=== PATIENT | male | born 1970 | race African-American/Black ===

== ENCOUNTER 2017-03-15 20:30 | Emergency (ER) | payer SELFPAY ==
[2017-03-15 21:04] LABS: #Basophils 0.1 thou/uL (0.0-0.2); #Eosinphils 0.4 thou/uL (0.0-0.7); #Monocytes 0.4 thou/uL (0.11-0.59); #Neutrophils 5.7 thou/uL (1.40-6.50); %Eosinophils 3.7 % (0.0-10.0); %Lymphocytes 37.6 % (21.0-51.0); %Monocytes 4.2 % (0.0-10.0); Hematocrit 46.8 % (42.0-52.0); Mean Platelet Volume 7.5 fL (7.4-10.4); Red Blood Cell (RBC) Count 5.48 mill/uL (4.70-6.10); White Blood Cell (WBC) Count 10.6 thou/uL (4.8-10.8)
--- NOTE | 2017-03-15 21:18 | RAD ---
PORTABLE AP CHEST X-RAY 03/15/17 HISTORY: Left sided chest pain for 30 minutes. Cough for one week. COMPARISON: 06/06/13 The cardiac silhouette and pulmonary vasculature are within normal limits for the portable technique of the study. The lungs remain clear. There has been no interval change from the prior exam. IMPRESSION: No acute cardiopulmonary process. POS: [facility] [place]
[2017-03-15 21:19] LABS: ALT (SGPT) 19 U/L (8-55); AST (SGOT) 20 U/L (5-34); Alkaline Phosphatase 65 U/L (40-150); Anion Gap 14 mmol/L (10-20); BUN (Urea Nitrogen) 17 mg/dL (8.9-20.6); Bilirubin, Total 0.8 mg/dL (0.2-1.2); Calc. Creatinine Clearance 0 mL/min (70-130); Calcium 9.3 mg/dL (7.8-10.44); Carbon Dioxide 26 mmol/L (22-29); Chloride 103 mmol/L (98-107); Estimated GFR-MDRD 78; Globulin 3.9 g/dL (2.4-3.5); Protein, Total 7.9 g/dL (6.0-8.3)
[2017-03-15 21:24] LABS: Troponin I Less than 0.010 ng/mL (< 0.028)
[2017-03-15] MEDS ORDERED: cefTRIAXone\\ROCEPHIN 1 GM VIAL ONE (22:16)
[2017-03-15] MEDS ORDERED: Lidocaine 1% PF 5 ML VIAL ONE (22:21)
[2017-03-15] MEDS ORDERED: Dexamethasone 10 MG/ML VIAL IM SCH (22:30)
== END 2017-03-15 22:51 | disposition home or self-care (01) ==
LOC: ERS 20:30
DX: J20.9 Acute bronchitis, unspecified (principal)
CPT/HCPCS: 36415; 71020; 80053; 82553; 84484; 85025; 93005; 94640; 96372; J0696; J1100; J2001; J7620

== ENCOUNTER 2017-05-27 09:10 | Emergency (ER) | payer SELFPAY | END 2017-05-27 10:33 | disposition home or self-care (01) | LOC: ERS 09:10 | DX: J06.9 Acute upper respiratory infection, unspecified (principal); F17.220 Nicotine dependence, chewing tobacco, uncomplicated | CPT/HCPCS: 99283 ==

== ENCOUNTER 2017-06-13 02:32 | Observation (INO) | payer SELFPAY ==
[2017-06-13] MEDS ORDERED: Lorazepam 2 MG/ML VIAL ONE (02:45)
[2017-06-13 03:04] LABS: #Basophils 0.1 thou/uL (0.0-0.2); #Eosinphils 0.3 thou/uL (0.0-0.7); #Lymphocytes 4.9 thou/uL (1.20-3.40); #Monocytes 0.4 thou/uL (0.11-0.59); #Neutrophils 5.1 thou/uL (1.40-6.50); %Basophils 0.5 % (0.0-1.0); %Eosinophils 2.5 % (0.0-10.0); %Monocytes 3.9 % (0.0-10.0); %Neutrophils 47.1 % (42.0-75.0); Hemoglobin 15.3 g/dL (14.0-18.0); Mean Corpuscular HGB CONC 35.1 g/dL (32.0-36.0); Mean Corpuscular Volume 85.6 fl (80.0-94.0); Mean Platelet Volume 7.2 fL (7.4-10.4); Platelet Count 286 thou/uL (130-400); RBC Distribution Width 12.6 % (11.5-14.5); Red Blood Cell (RBC) Count 5.11 mill/uL (4.70-6.10); White Blood Cell (WBC) Count 10.7 thou/uL (4.8-10.8)
[2017-06-13 03:19] LABS: ALT (SGPT) 17 U/L (8-55); AST (SGOT) 17 U/L (5-34); Albumin 4.1 g/dL (3.5-5.0); Alkaline Phosphatase 59 U/L (40-150); Anion Gap 14 mmol/L (10-20); BUN (Urea Nitrogen) 15 mg/dL (8.9-20.6); Bilirubin, Total 0.6 mg/dL (0.2-1.2); CK (CPK) 372 U/L (30-200); Calc. Creatinine Clearance 0 mL/min (70-130); Calcium 9.4 mg/dL (7.8-10.44); Carbon Dioxide 25 mmol/L (22-29); Chloride 103 mmol/L (98-107); Estimated GFR-MDRD 81; Globulin 3.5 g/dL (2.4-3.5); Glucose 213 mg/dL (70-105); Potassium 3.7 mmol/L (3.5-5.1); Protein, Total 7.6 g/dL (6.0-8.3); Sodium 138 mmol/L (136-145)
[2017-06-13 03:22] LABS: CKMB 3.9 ng/mL (0-6.6); Troponin I Less than 0.010 ng/mL (< 0.028)
[2017-06-13 04:01] LABS: Amphetamine Not Detected (NotDetected); Barbiturates Screen Not Detected (NotDetected); Benzodiazepine Screen Not Detected (NotDetected); Cocaine Metabolite Screen Not Detected (NotDetected); Medtox Control Line Valid? VALID (VALID); Medtox Reader # READER 4; Methadone Not Detected (NotDetected); Methamphetamine Not Detected (NotDetected); Opiate Screen Not Detected (NotDetected); Oxycodone Screen Not Detected (NotDetected); Phencyclidine (PCP) Not Detected (NotDetected); THC/Cannabinoid Screen Not Detected (NotDetected); Tricyclic Screen Not Detected (NotDetected)
[2017-06-13 06:03] VITALS: BMI 34.9
[2017-06-13] MEDS ORDERED: Acetaminophen 325 MG TAB PO PRN ×2 (06:19→07:20)
[2017-06-13] MEDS ORDERED: Ondansetron HCl/PF 4 MG/2 ML Vial IVP PRN (06:19)
[2017-06-13] MEDS ORDERED: Ondansetron ODT 4 MG TAB SL PRN (06:19)
[2017-06-13 06:31] LABS: Troponin I Less than 0.010 ng/mL (< 0.028)
[2017-06-13] MEDS ORDERED: Ondansetron ODT 4 MG TAB PO PRN (07:20)
--- NOTE | 2017-06-13 07:39 | HP ---
PRIMARY CARE PROVIDER: [facility] call admission for [facility]. CHIEF COMPLAINT: Referred to [facility] Hospitalist Service by [facility]. HISTORY OF PRESENT ILLNESS: The patient awoke this morning with palpitations, tightness in his chest , lasted 10-15 minutes. He had shortness of breath with it. No sweats, no nausea, no radiation of t he chest tightness. security director were called. He reportedly had a pulse of 148 when they arrived. PAST MEDICAL HISTORY: Negative for chronic medical disease. MEDICATIONS: None. ALLERGIES: None. PAST SURGICAL HISTORY: He has had arthroscopic surgery of both knees. FAMILY HISTORY: One grandfather had coronary artery disease. Multiple members of the family have hy pertension. SOCIAL HISTORY: . Full code status. at bedside. No tobacco, no alcohol of note. REVIEW OF SYSTEMS: GENERAL: No headaches, dizziness or fainting. EYES: No double vision, blurred vision, flashing lights. ENT: No ear pain or drainage. No nasal bleeding. No trouble swallowing. No bleeding gums. CARDIAC: See present illness. No prior history. No orthopnea, no paroxysmal nocturnal dyspnea. RESPIRATORY: No cough, wheezing or asthma. GASTROINTESTINAL: No nausea, vomiting, diarrhea, constipation or blood in his stools. GENITOURINARY: No hematuria or dysuria. MUSCULOSKELETAL: No pain or swelling in his arms or legs. NEUROLOGIC: No strokes, seizures or focal weakness. PSYCHIATRIC: No history of anxiety or depression. SKIN: No bruising, bleeding or rash. HEME/LYMPH: No tender or swollen lymph nodes under his arms, neck or his groin. No history of bleed ing gums or bleeding under his skin. PHYSICAL EXAMINATION: GENERAL: He is an alert, oriented, cooperative, pleasant gentleman. VITAL SIGNS: Blood pressure 122/69, pulse 90, respirations 18, O2 sat 97 on room air, temperature 97 .8. HEENT: Reveal pupils equal, round, and reactive to light. Extraocular movements are intact. Sclera e white. Tympanic membranes clear. Nose clear. Oral mucous membranes are wet. Dental hygiene is g ood. NECK: Supple, without jugular venous distention, adenopathy or thyromegaly. CHEST: Clear to auscultation and percussion. HEART: Regular rate and rhythm. First and second heart sounds are clear. There are no murmurs, no gallops, no lifts. ABDOMEN: Soft, bowel sounds are normal. There is no hepatosplenomegaly, no mass, no rebound, no bru its. EXTREMITIES: Reveal no cyanosis, clubbing or edema. PULSES: Carotid, radial, femoral, and dorsalis pedis pulses were brisk intact and symmetric. HEME/LYMPH: No tender or swollen lymph nodes in axilla, inguinal or cervical area. No petechial hem orrhages on his extremities, etc. NEUROLOGICAL: Cranial nerves II-XII are intact. Deep tendon reflexes symmetric. Toes downgoing. EKG reviewed by me, normal. LABORATORY AND X-RAY FINDINGS: Chest x-ray reviewed by myself, normal. No cardiomegaly, CHF or infi ltrate. Comp metabolic profile, blood sugar 213, otherwise normal. CK 372. Cardiac enzymes normal x2. CBC normal. Toxicology; no illicit drugs, etc. ADMITTING DIAGNOSES: 1. Palpitations. 2. Hypertensive with EMS and early in the ER. 3. Chest tightness/chest pain. PLAN: Three sets of enzymes, exercise cardiac stress test.
[2017-06-13 07:43] VITALS: BP 131/70; TEMP 98
--- NOTE | 2017-06-13 08:06 | RAD ---
SINGLE VIEW CHEST: Date: 06/13/17 COMPARISON: 03/15/17. HISTORY: Chest pain and palpitations. FINDINGS: Single view of the chest shows a normal sized cardiomediastinal silhouette. There is no evidence of c onsolidation, mass, or pleural effusion. The bones are unremarkable. IMPRESSION: No evidence of acute cardiopulmonary disease. POS: [facility]
[2017-06-13 08:16] LABS: Troponin I Less than 0.010 ng/mL (< 0.028)
[2017-06-13] MEDS ORDERED: Aspirin 325 MG TAB PO SCH (09:00)
--- NOTE | 2017-06-13 11:12 | DIS ---
TRANSFER OF CARE NOTE DISCHARGE DISPOSITION: Home. FINAL DIAGNOSES: 1. Palpitations. 2. Chest pain. 3. Hypertension. DISCHARGE MEDICATIONS: None. CODE STATUS: Full. PENDING AT THE TIME OF DISCHARGE: Nothing. ALLERGIES: None. HOSPITAL COURSE: The patient awoke with palpitations and chest tightness, came to the emergency room . His initial pulse was reportedly about 150, the highest documented in the emergency room with abou t 107. His symptoms resolved after 10-15 minutes. Cardiac enzymes were normal. CBC was normal. Co mp metabolic profile normal except for blood sugar of 213. Tox screen was negative. EKG was normal. Exercise stress test was done, which is normal. The patient and I had a conversation about the kiarra nings of all of this. I told him there was no evidence for any organic heart disease, that if he had further palpitations he would need to be further evaluated and if no obvious etiology on the ER or P CP visit, he would need a Holter monitor. He is understanding of this. He is being discharged home. He has no PCP for followup. It has been discussed with him getting one. CONSULTATIONS: None. PROCEDURES: None.
[2017-06-13] MEDS ORDERED: Nitroglycerin 2% Ointment 1 INCH/1 GM Packet TOP SCH (12:00)
--- NOTE | 2017-06-17 13:35 | STRESS ---
Acquisition Time: 2017-06-13 08:53:23 Total Exercise Time: 00:09:00 Test Indications: CHEST PAIN Medications: Protocol: PALMER Max HR: 157 BPM 89% of Pred: 175 BPM Max BP: 172/092 mmHG Max Work Load: 10.1 METS RESTING ECG: NORML SINUS RHYTHM AT 73 BPM SYMPTOMS: NONE NORMAL BP RESPONSE ECTOPY: NONE ECG STRESS: NO SIGNIFICANT CHANGES INTERPRETATION: NEGATIVE ECG PER EXERCISE TREADMILL TEST Confirmed by NEVIN AMADOR MD ([id number] on 06/17/2017 1:34:14 PM Referred By: Hollie PHELAN Confirmed By:NEVIN AMADOR MD
--- NOTE | 2017-06-17 15:47 | EKG ---
Test Reason : HTN Blood Pressure : / mmHG Vent. Rate : 092 BPM Atrial Rate : 092 BPM P-R Int : 194 ms QRS Dur : 082 ms QT Int : 336 ms P-R-T Axes : 064 029 010 degrees QTc Int : 415 ms Normal sinus rhythm Left atrial enlargement Borderline ECG Confirmed by GARETT CHEN, ANALY Martinez ([id number]), production editor TAYLOR ABRAMS ([id number] on 06/17/2017 3:47:45 PM Referred By: GARETT Confirmed By:ANALY BAJWA MD
== END 2017-06-13 11:42 | disposition home or self-care (01) ==
LOC: ERS 02:32 → 2SW 04:30
PROVIDERS: ADMIT Internal Medicine; ATTEND Internal Medicine
DX: R00.2 Palpitations (principal); R07.89 Other chest pain; I10 Essential (primary) hypertension; Z98.890 Other specified postprocedural states
CPT/HCPCS: 36415; 71010; 80053; 80306; 82553; 84484; 85025; 93005; 93017; 94760; 96361; 96374; G0378; J2060

== ENCOUNTER 2017-07-21 13:47 | Emergency (ER) | payer SELFPAY ==
[2017-07-21] MEDS ORDERED: Dexamethasone 10 MG/ML VIAL ONE (14:28)
[2017-07-21] MEDS ORDERED: cefTRIAXone\\ROCEPHIN 1 GM VIAL IM SCH (14:45)
[2017-07-21] MEDS ORDERED: Lidocaine 1% PF 5 ML VIAL FS SCH (14:45)
[2017-07-21] MEDS ORDERED: Lidocaine 1% PF 5 ML VIAL ONE (15:08)
== END 2017-07-21 15:33 | disposition home or self-care (01) ==
LOC: ERS 13:47
DX: K11.20 Sialoadenitis, unspecified (principal); F17.220 Nicotine dependence, chewing tobacco, uncomplicated
CPT/HCPCS: 96372; J0696; J1100; J2001

== ENCOUNTER 2019-04-14 20:12 | Emergency (ER) | payer SELFPAY ==
[2019-04-14] MEDS ORDERED: HYDROcodone/Acetaminophen 10/325 mg Tablet ONE (21:37)
--- NOTE | 2019-04-14 21:49 | RAD ---
EXAM: Chest PA and lateral: HISTORY: Cough. Pain. COMPARISON: 03/15/2017, 06/13/2027 FINDINGS: Heart: Normal cardiac silhouette Aorta: Unremarkable Pulmonary vessels: Normal Costophrenic angles: Costophrenic angles are clear. Lungs: No consolidation or masses. Pneumothorax: No pneumothorax Osseous structures: No osseous abnormalities IMPRESSION: No acute cardiopulmonary process.
== END 2019-04-14 22:19 | disposition home or self-care (01) ==
LOC: ERS 20:12
DX: J06.9 Acute upper respiratory infection, unspecified (principal); M94.0 Chondrocostal junction syndrome [Tietze]; F17.220 Nicotine dependence, chewing tobacco, uncomplicated
CPT/HCPCS: 71046